=== PATIENT | male | born 1950 | race Caucasian/White ===

== ENCOUNTER 2025-02-15 11:37 | Observation (INO) ==
[2025-02-15 12:32] LABS: Hematocrit (blood only) 22.3 % (42.0-52.0); Hemoglobin 7.1 g/dl (14.0-18.0); Immature Granulocytes # (auto) 0.16 K/uL (0.01-0.20); Immature Granulocytes % (auto) 2.0 %; Mean Corpuscular Hemoglobin 28.7 pg (25.0-34.0); Mean Corpuscular Volume 90.3 fL (80.0-100.0); Platelet Count 229 K/uL (130-400); RDW Standard Deviation 52.0 fL (36.4-46.3); Red Blood Count 2.47 M/uL (4.70-6.10); White Blood Count 8.17 K/ul (4.8-10.8)
[2025-02-15 12:49] LABS: Alanine Aminotransferase 11 U/L (7-52); Albumin Globulin Ratio 1.2 (0.9-2); Alkaline Phosphatase 54 U/L (34-104); Anion Gap 8 (3-11); Bilirubin,Total 0.5 mg/dl (0.2-1.0); Blood Urea Nitrogen 34 mg/dl (6-23); Calcium 10.3 mg/dl (8.6-10.3); Carbon Dioxide 30 mmol/L (21-32); Chloride 98 mmol/L (98-107); Globulin 3.3 gm/dl (2.5-4.0); Glucose 93 mg/dl (70-99(Fasting)); Potassium 5.4 mmol/L (3.5-5.1); Sodium 136 mmol/L (136-145); Total Protein 7.4 gm/dl (6.0-8.3)
[2025-02-15 12:51] LABS: Ovalocytes 1+; Polychromasia 1+
[2025-02-15 12:56] LABS: INR 1.0 (0.9-1.1); Partial Thromboplastin Time 26 Seconds (21-31); Prothrombin Time 10.9 Seconds (9.0-12.0)
--- NOTE | 2025-02-15 13:32 | Emergency Department Note ---
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 The patient notes that for the past several months he has felt dizzy, lightheaded and overall fatigue. Laboratory studies were obtained and patient was noted to have a hemoglobin of 6.9 with hematocrit of 22.6. Patient is on clopidogrel, last of which was taken at 6:30 AM this morning which I did confirm via call/converse with [facility] personnel at 1341 hrs. patient denies any hemoptysis. He denies any recent trauma or injury. He denies any bleeding. He denies any black tarry stools. He denies any blood in the stool recently. Patient believes the blood was drawn at the [facility] this past Thursday/Thu and was referred in today with the result being abnormal noting hemoglobin of 6.9. Per review of the accompanying emergency room transfer form the patient has a history of hypothyroidism, type 2 diabetes, hyperlipidemia, macular degeneration, hypertension, paroxysmal A-fib, GERD, spinal stenosis. Patient does note history of cardiac stent placement currently on clopidogrel among other meds. No other antiplatelet or anticoagulants per review of the accompanying med list or per discussion with [facility] where the patient resides. Home Medications Medication Instructions Recorded Confirmed Type aripiprazole 5 mg tablet 5 mg PO HS 09/02/24 02/15/25 History cholecalciferol (vitamin D3) 25 25 mcg PO DAILY 09/02/24 02/15/25 History mcg (1,000 unit) capsule clopidogrel 75 mg tablet 75 mg PO DAILY 09/02/24 02/15/25 History insulin regular human 100 unit/mL 1 sliding scale dose subcut 09/02/24 02/15/25 History injection solution (Novolin R USEASDIRECTD Regular U-100 Insulin) metformin 1,000 mg tablet 1,000 mg PO BID 09/02/24 02/15/25 History rosuvastatin 40 mg tablet 40 mg PO QPM 09/02/24 02/15/25 History amlodipine 5 mg tablet 5 mg PO DAILY 02/15/25 02/15/25 History benztropine 0.5 mg tablet 0.5 mg PO HS 02/15/25 02/15/25 History duloxetine 60 mg capsule,delayed 60 mg PO BID 02/15/25 02/15/25 History release gemfibrozil 600 mg tablet 600 mg PO BID 02/15/25 02/15/25 History insulin glargine-yfgn 100 unit/mL 36 unit subcut HS 02/15/25 02/15/25 History subcutaneous solution levothyroxine 88 mcg tablet 88 mcg PO DAILY 02/15/25 02/15/25 History sitagliptin phosphate 50 mg tablet 25 mg PO DAILY 02/15/25 02/15/25 History (Cece) Allergies Allergy/AdvReac Type Severity Reaction Status Date / Time No Known Allergies Allergy Unverified 02/15/25 15:43 Past Med/Surg History Problem List CAD (coronary artery disease) Normocytic anemia Diabetic ulcer of toe of right foot (Acute) Diabetic ulcer of toe of left foot (Acute) Diabetic foot ulcer Diabetic foot ulcer associated with secondary diabetes mellitus (Acute) Medical History Combined forms of age-related cataract of both eyes Tinea unguium Major depressive disorder Chronic kidney disease Spinal stenosis Xerosis cutis Gastro-esophageal reflux disease without esophagitis Paroxysmal atrial fibrillation Pulmonary hypertension Atherosclerotic heart disease of [place] coronary artery with other forms of angina pectoris Hypertension Hearing loss, bilateral Macular degeneration Hyperlipidemia Type 2 diabetes mellitus with diabetic neuropathy Hypothyroid Social History Smoking Status: Never smoker Preferred Language: Syriac Visual Impairment: Limited Hearing Ability: Hard of Hearing Diet: regular Assistive Devices: Glasses and Hearing Aid - Bilateral Review of Systems A total of 10 systems reviewed and were otherwise negative Physical Exam Vital Signs Vital Signs - 24 hr 02/15/25 12:00 02/15/25 13:29 02/15/25 13:34 Temperature 36.7 C Temperature Source Temporal Artery Scan Pulse Rate 94 H 88 82 Respiratory Rate 18 20 Blood Pressure 87/54 L 121/68 Blood Pressure Mean 65 84 Pulse Oximetry 100 100 Oxygen Delivery Method Room Air Room Air Sepsis New/Unexplained Change in Mental Status No Sepsis Action Taken by Nursing No Action Required VITAL SIGNS - Vital signs and nursing notes were reviewed. Hypotensive, otherwise stable and afebrile. GENERAL -74-year-old male appearing his stated age who is in no acute distress. Communicates well with provider and answers questions appropriately. SKIN - Without rashes. Patient is pale in appearance, otherwise without any meningeal or petechial rash HEAD - NC/AT. EYES - PERRL with EOMI bilaterally. Sclera anicteric. EARS - No deformities of external structures noted on gross examination bilaterally. NOSE - Midline and without cyanosis. No epistaxis or purulent drainage noted. MOUTH/OROPHARYNX - Without perioral cyanosis. NECK - Neck with FROM. No nuchal rigidity. LUNGS - CTA CARDIAC - RRR ABDOMEN - Abdominal contour normal without pulsations or visible masses. BS normoactive all four quadrants. No tenderness, palpable masses, hepatosplenomegaly, or ascites noted. EXTREMITIES - No clubbing or peripheral cyanosis. +5/5 strength noted in UE/LE bilaterally. NEUROLOGIC - Cranial nerves II through XII grossly intact. PSYCH -alert, oriented and pleasant on exam. Course Administered Medications Discontinued Medications Sodium Chloride (Nss) 500 mls @ 500 mls/hr IV .Q1H ONE Stop: 02/15/25 14:59 Last Infusion: 02/15/25 15:08 Dose: Infused Documented By: Admin: 02/15/25 14:08 Dose: 500 mls/hr Documented By: INGRID Medical Decision Making Laboratory Data 02/15/25 12:10 02/15/25 12:10 Lab Results 02/15/25 02/15/25 02/15/25 Range/Units 12:10 12:11 14:01 WBC 8.17 (4.8-10.8) K/ul RBC 2.47 L (4.70-6.10) M/uL Hgb 7.1 L (14.0-18.0) g/dl Hct 22.3 L (42.0-52.0) % MCV 90.3 (80.0-100.0) fL MCH 28.7 (25.0-34.0) pg MCHC 31.8 L (32.0-36.0) g/dL RDW Std Deviation 52.0 H (36.4-46.3) fL RDW Coeff of Asif 16.1 H (11.5-14.5) % Plt Count 229 (130-400) K/uL MPV 9.9 (9.4-12.4) fL Immature Gran % (Auto) 2.0 % Neut % (Auto) 70.1 % Lymph % (Auto) 19.8 % Garland % (Auto) 6.9 % Eos % (Auto) 0.7 % Baso % (Auto) 0.5 % Reticulocyte % (Auto) (0.50-2.00) % Neut # (Auto) 5.73 (1.40-6.50) K/uL Lymph # (Auto) 1.62 (1.20-3.40) K/uL Garland # (Auto) 0.56 (0.11-0.59) K/uL Eos # (Auto) 0.06 (0.00-0.50) K/uL Baso # (Auto) 0.04 (0.00-0.20) K/uL Reticulocyte # (0.020-0.100) 10^6/uL Immature Gran # (Auto) 0.16 (0.01-0.20) K/uL Polychromasia 1+ Ovalocytes 1+ ESR 45 H (0-20) mm/hr PT 10.9 (9.0-12.0) Seconds INR 1.0 (0.9-1.1) APTT 26 (21-31) Seconds PTT Ratio 1.0 Sodium 136 (136-145) mmol/L Potassium 5.4 H (3.5-5.1) mmol/L Chloride 98 (98-107) mmol/L Carbon Dioxide 30 (21-32) mmol/L Anion Gap 8 (3-11) BUN 34 H (6-23) mg/dl Creatinine 1.42 H (0.6-1.4) mg/dl Est Cr Clr Drug Dosing Not Reportable eGFR 52.18 BUN/Creatinine Ratio 23.9 H (10-20) Glucose 93 (70-99(Fasting)) mg/dl Calcium 10.3 (8.6-10.3) mg/dl Iron (35-175) mcg/dl Transferrin (200-360) mg/dl Ferritin (8-388) ng/ml Total Bilirubin 0.5 (0.2-1.0) mg/dl AST 12 L (13-39) U/L ALT 11 (7-52) U/L Alkaline Phosphatase 54 (34-104) U/L Troponin I High Sens 3.2 (0-20) pg/ml C-Reactive Protein 0.77 H (0-0.5) mg/dl Total Protein 7.4 (6.0-8.3) gm/dl Albumin 4.1 (3.4-5.0) gm/dl Globulin 3.3 (2.5-4.0) gm/dl Albumin/Globulin Ratio 1.2 (0.9-2) Vitamin B12 (180-914) pg/ml Folate (>5.38) ng/ml Procalcitonin 0.08 (0-0.5) ng/ml TSH (0.300-4.500) uIu/ml Blood Type A Negative Blood Type Recheck A Negative Antibody Screen NEGATIVE Crossmatch See Detail 02/15/25 Range/Units 14:46 WBC (4.8-10.8) K/ul RBC (4.70-6.10) M/uL Hgb (14.0-18.0) g/dl Hct (42.0-52.0) % MCV (80.0-100.0) fL MCH (25.0-34.0) pg MCHC (32.0-36.0) g/dL RDW Std Deviation (36.4-46.3) fL RDW Coeff of Asif (11.5-14.5) % Plt Count (130-400) K/uL MPV (9.4-12.4) fL Immature Gran % (Auto) % Neut % (Auto) % Lymph % (Auto) % Garland % (Auto) % Eos % (Auto) % Baso % (Auto) % Reticulocyte % (Auto) 5.95 H (0.50-2.00) % Neut # (Auto) (1.40-6.50) K/uL Lymph # (Auto) (1.20-3.40) K/uL Garland # (Auto) (0.11-0.59) K/uL Eos # (Auto) (0.00-0.50) K/uL Baso # (Auto) (0.00-0.20) K/uL Reticulocyte # 0.140 H (0.020-0.100) 10^6/uL Immature Gran # (Auto) (0.01-0.20) K/uL Polychromasia Ovalocytes ESR (0-20) mm/hr PT (9.0-12.0) Seconds INR (0.9-1.1) APTT (21-31) Seconds PTT Ratio Sodium (136-145) mmol/L Potassium (3.5-5.1) mmol/L Chloride (98-107) mmol/L Carbon Dioxide (21-32) mmol/L Anion Gap (3-11) BUN (6-23) mg/dl Creatinine (0.6-1.4) mg/dl Est Cr Clr Drug Dosing eGFR BUN/Creatinine Ratio (10-20) Glucose (70-99(Fasting)) mg/dl Calcium (8.6-10.3) mg/dl Iron 46 (35-175) mcg/dl Transferrin 251 (200-360) mg/dl Ferritin 39.2 (8-388) ng/ml Total Bilirubin (0.2-1.0) mg/dl AST (13-39) U/L ALT (7-52) U/L Alkaline Phosphatase (34-104) U/L Troponin I High Sens (0-20) pg/ml C-Reactive Protein (0-0.5) mg/dl Total Protein (6.0-8.3) gm/dl Albumin (3.4-5.0) gm/dl Globulin (2.5-4.0) gm/dl Albumin/Globulin Ratio (0.9-2) Vitamin B12 383 (180-914) pg/ml Folate 15.67 (>5.38) ng/ml Procalcitonin (0-0.5) ng/ml TSH 1.652 (0.300-4.500) uIu/ml Blood Type Blood Type Recheck Antibody Screen Crossmatch Imaging Data Radiologist's Impression: Chest X-Ray 02/15/25 12:05 XR chest 1V portable CLINICAL HISTORY: anemia COMPARISON STUDY: 05/30/2024 FINDINGS: Heart size and pulmonary vasculature are normal. No consolidation or pleural effusion. No pneumothorax. IMPRESSION: No acute findings. ACT 112: Negative or not required by law. Electronically signed by: Homar Ascencio M.D. 02/15/2025 2:09 PM MDM Narrative Patient was seen and evaluated as above in room B10. Review was performed of nursing notes and vital signs. I did review pertinent previous visits and patient history. After obtaining a thorough history and physical examination the above work up was performed. Patient presents to us today referred by the [facility], patient currently incarcerated at [facility]. Patient noted to have hemoglobin of 6.9 prompting referral here today. Patient is pale in appearance. He is noted to be hypotensive on initial BP check at 87/54 but recheck reveals normotensive status BP 121/68. Appropriate blood consent form was completed. Patient did provide consent to proceed with blood transfusion. Type and cross ordered, transfuse 1 unit now, 1 on hold. No leukocytosis. Hemoglobin 7.1. Inflammatory markers elevated. Hyperkalemia 5.4. BOLA creatinine 1.42 with a BUN of 34. Troponin negative. Procalcitonin within normal range. EKG per monitor potation reveals normal sinus rhythm at a rate of 91 bpm. QTc 418. QRS 64. No ST elevation on this rhythm tracing. No hyperkalemia findings on this rhythm tracing. Plan at this time is further evaluation and management in the inpatient setting. Case discussed with the hospitalist service. Please refer to further documentation regarding his stay. GCS: 15 In the evaluation and treatment of this patient the following differential diagnoses were entertained: Acute GI bleed, anemia, anemia of chronic disease, among others. Impression & Plan Anemia Discharge Plan Visit Data Chief Complaint: Abnormal Labs/Diagnostic Testing Stated Complaint: LOW H&H ED Provider: Juan Carlos Samano ED Midlevel Provider: Kings Erickson Discharge Problem: Anemia Patient Disposition: Admitted As Inpatient Condition: Good Discharge Instructions Interventions: ED Discharge Assessment Last Done: 02/15/25 16:31
[2025-02-15] MEDS ORDERED: SODIUM CHLORIDE 0.9% 100 ML IV PRN (13:58)
[2025-02-15] MEDS: SODIUM CHLORIDE 0.9% 500 ML IV ONE (14:08)
--- NOTE | 2025-02-15 14:11 | XRay Report ---
XR chest 1V portable CLINICAL HISTORY: anemia COMPARISON STUDY: 05/30/2024 FINDINGS: Heart size and pulmonary vasculature are normal. No consolidation or pleural effusion. No p neumothorax. IMPRESSION: No acute findings. ACT 112: Negative or not required by law. Electronically signed by: Homar Ascencio M.D. 02/15/2025 2:09 PM
--- NOTE | 2025-02-15 14:58 | History & Physical Report ---
Date of Service February 15, 2025 Assessment & Plan (1) Normocytic anemia: (2) Type 2 diabetes mellitus with diabetic neuropathy: (3) Chronic kidney disease: (4) Paroxysmal atrial fibrillation: (5) Pulmonary hypertension: (6) Hypothyroid: (7) CAD (coronary artery disease): Plan 74 y/o with DM 2 and CAD with history of stent on plavix who was sent to our ED by [facility] for anemia found on labs. Hg 6.9 on Thursday and stable today at 7.1. No melena or BRBPR # Normocytic anemia -transfused 1u RBC in ED -check CBC in AM -add on anemia labs to ED sample: retic, ferritin, iron, transferrin sat, B12, folate, TSH, A1c. B12 folate TSH came back normal. -guaiac stools -UA -hold gemfibrozil can cause cytopenias -unless evidence of active bleeding, outpatient GI referral for endoscopies is appropriate if its iron deficiency anemia, may need hematology referral for other types of anemia # CKD-3 # HTN Cr mildly increased from 6 months ago 1.2--1.4 and mildly hyperkalemic 5.4 -transfusion will help -held MICAELA -AM BMP # DM type 2 - metformin held -continue glargine and premeal/correctional aspart -DM diet # CAD hx stent remote stent (>10 years) -stable, continue plavix unless bleeding seen # mental health -continue aripiprazole Dispo - anticipate back to [facility] tomorrow AM History of Present Illness Chief Complaint: anemia, abnormal labs Primary Care Provider: [facility] 74 y/o with DM 2 and CAD on plavix who was sent to our ED by [facility] for anemia found on labs. We think labs were drawn thursday and unknown whether routine or for specific indication. Hg was 6.9 There has not been any BRBPR or melena. On plavix for coronary stent which was years ago. No abdominal pain. No hematuria. Hg unchanged since Thursday so there is stability. He had a sharp left precordial chest pain last week that lasted a few seconds. Otherwise no chest pain. No dyspnea. No lightheadedness. He does have fatigue but not changed recently. Allergies Allergy/AdvReac Type Severity Reaction Status Date / Time No Known Allergies Allergy Unverified 02/15/25 15:43 Home Medications Medication Instructions Recorded Confirmed Type aripiprazole 5 mg tablet 5 mg PO HS 09/02/24 02/15/25 History cholecalciferol (vitamin D3) 25 25 mcg PO DAILY 09/02/24 02/15/25 History mcg (1,000 unit) capsule clopidogrel 75 mg tablet 75 mg PO DAILY 09/02/24 02/15/25 History insulin regular human 100 unit/mL 1 sliding scale dose subcut 09/02/24 02/15/25 History injection solution (Novolin R USEASDIRECTD Regular U-100 Insulin) metformin 1,000 mg tablet 1,000 mg PO BID 09/02/24 02/15/25 History rosuvastatin 40 mg tablet 40 mg PO QPM 09/02/24 02/15/25 History amlodipine 5 mg tablet 5 mg PO DAILY 02/15/25 02/15/25 History benztropine 0.5 mg tablet 0.5 mg PO HS 02/15/25 02/15/25 History duloxetine 60 mg capsule,delayed 60 mg PO BID 02/15/25 02/15/25 History release gemfibrozil 600 mg tablet 600 mg PO BID 02/15/25 02/15/25 History insulin glargine-yfgn 100 unit/mL 36 unit subcut HS 02/15/25 02/15/25 History subcutaneous solution levothyroxine 88 mcg tablet 88 mcg PO DAILY 02/15/25 02/15/25 History sitagliptin phosphate 50 mg tablet 25 mg PO DAILY 02/15/25 02/15/25 History (Cece) Past Med/Surg History Problem List CAD (coronary artery disease) Normocytic anemia Diabetic ulcer of toe of right foot (Acute) Diabetic ulcer of toe of left foot (Acute) Diabetic foot ulcer Diabetic foot ulcer associated with secondary diabetes mellitus (Acute) Medical History Combined forms of age-related cataract of both eyes Tinea unguium Major depressive disorder Chronic kidney disease Spinal stenosis Xerosis cutis Gastro-esophageal reflux disease without esophagitis Paroxysmal atrial fibrillation Pulmonary hypertension Atherosclerotic heart disease of [place] coronary artery with other forms of angina pectoris Hypertension Hearing loss, bilateral Macular degeneration Hyperlipidemia Type 2 diabetes mellitus with diabetic neuropathy Hypothyroid Social History Smoking Status: Never smoker Preferred Language: Macedonian Visual Impairment: Limited Hearing Ability: Hard of Hearing Diet: regular Assistive Devices: Glasses and Hearing Aid - Bilateral Review of Systems 2 Review of Systems: All systems reviewed & are unremarkable except as noted in HPI & below Physical Exam 2 Physical Exam: Last 24h vitals reviewed GEN: no acute distress, sitting in bed, getting transfusion HEENT: pupils equal, sclerae anicteric, moist MM RESP: normal WOB, CTAB CV: reg no mrg ABD: soft/nt/nd +BT : no salomon SKIN: warm and dry, no generalized rashes NEURO: AOx person, place, and situation. Very [place]. Face symmetric, speech normal, moves 4 ext spontaneously and equally Results & Data Results & Data Vital Signs (Past 12 Hours) Vital Signs Temp Pulse Resp BP Pulse Ox O2 Del Method 02/15/25 13:34 82 02/15/25 13:29 88 20 121/68 100 Room Air 02/15/25 12:00 36.7 C 94 H 18 87/54 L 100 Room Air Laboratory Results 02/15/25 12:10 02/15/25 12:10 Baseline Cr per records review 1.2 ESR 45 and CRP0.77 Coags normal LFT normal Albumin nl Procal neg Personally reviewed CXR film and it is clear Personally reviewed EKG tracing and it is normal Code Status & VTE Plan VTE Prophylaxis Plan VTE Prophylaxis will be ordered: Yes PG Care Time/CCT Total # of Minutes Spent Total Time Spent with Patient: Total time spent is greater than 50% in coordination of care (as documented) at patient's floor/unit and/or counseling patient: Coding Level of Care Code 01904 INT INP/OBS CARE 2/55MIN Diagnoses Normocytic anemia D64.9 Type 2 diabetes mellitus with diabetic neuropathy E11.40 Chronic kidney disease N18.9 Paroxysmal atrial fibrillation I48.0 Pulmonary hypertension I27.20 Hypothyroid E03.9 CAD (coronary artery disease) I25.10
[2025-02-15 15:14] LABS: Reticulocytes # 0.140 10^6/uL (0.020-0.100)
[2025-02-15 15:31] LABS: Iron 46.0 mcg/dl (35-175); Transferrin 251.0 mg/dl (200-360)
[2025-02-15 15:48] LABS: Thyroid Stimulating Hormone 1.652 uIu/ml (0.300-4.500)
[2025-02-15 15:51] LABS: Ferritin 39.2 ng/ml (8-388)
[2025-02-15 15:57] LABS: Folate (Folic Acid),Ser orPlas 15.67 ng/ml (>5.38)
[2025-02-15 15:59] LABS: Vitamin B12 383.0 pg/ml (180-914)
[2025-02-15] MEDS ORDERED: GLUCOSE 40% GEL 15 GM TUBE PO PRN (16:31)
[2025-02-15] MEDS ORDERED: CARBOHYDRATES FOR HYPOGLYCEMIA PO PRN (16:31)
[2025-02-15] MEDS ORDERED: GLUCOSE 10 TAB/TUBE PO PRN (16:31)
[2025-02-15] MEDS ORDERED: ACETAMINOPHEN 325 MG TAB PO PRN (16:31)
[2025-02-15] MEDS ORDERED: POLYETHYLENE (MIRALAX) 17 GM PACK PO PRN (16:31)
[2025-02-15] MEDS ORDERED: ALUMINUM/MAGNESIUM SUSP 30 ML UDC PO PRN (16:31)
[2025-02-15] MEDS ORDERED: MAGNESIUM HYDROXIDE SUSP 30 ML UDC PO PRN (16:31)
[2025-02-15] MEDS ORDERED: DEXTROSE 50% 50 ML SYRINGE IV PRN (16:31)
[2025-02-15] MEDS ORDERED: GLUCAGON FOR INJ 1 MG VIAL SQ PRN (16:31)
[2025-02-15] MEDS ORDERED: ONDANSETRON INJ 2 MG/ML 2 ML VIAL IV PRN (16:31)
[2025-02-15] MEDS ORDERED: MELATONIN 3 MG TAB PO PRN (16:31)
[2025-02-15 17:54] LABS: Appearance Urine Clear (Clear); Glucose Urine UA Negative (Negative)
[2025-02-15] MEDS: INSULIN ASPART PER UNIT CHARGE SC SCH (18:47)
[2025-02-16 00:28] VITALS: TEMP 98.1
[2025-02-16 05:03] LABS: Hematocrit (blood only) 26.4 % (42.0-52.0); Hemoglobin 8.5 g/dl (14.0-18.0); Mean Corpuscular Hemoglobin 28.2 pg (25.0-34.0); Mean Corpuscular Volume 87.7 fL (80.0-100.0); Platelet Count 178 K/uL (130-400); RDW Standard Deviation 49.1 fL (36.4-46.3); Red Blood Count 3.01 M/uL (4.70-6.10); White Blood Count 5.57 K/ul (4.8-10.8)
[2025-02-16 05:32] LABS: Anion Gap 9.0 (3-11); Blood Urea Nitrogen 31.0 mg/dl (6-23); Calcium 9.6 mg/dl (8.6-10.3); Carbon Dioxide 28.0 mmol/L (21-32); Chloride 99.0 mmol/L (98-107); Creatinine Clr Calc Pharmacy 57.6 ml/min; Glucose 122.0 mg/dl (70-99(Fasting)); Potassium 3.8 mmol/L (3.5-5.1); Sodium 136.0 mmol/L (136-145)
[2025-02-16] MEDS: LEVOTHYROXINE SODIUM 100 MCG TABLET PO SCH (06:25)
[2025-02-16 06:32] VITALS: RESP 18; O2SAT 98
[2025-02-16 07:30] LABS: Hemoglobin A1C 4.6 % (4.5-5.6)
[2025-02-16] MEDS: FUROSEMIDE 20 MG TAB PO SCH (08:13)
[2025-02-16] MEDS: ROSUVASTATIN CALCIUM 20 MG TAB PO SCH (08:13)
[2025-02-16] MEDS: CLOPIDOGREL BISULFATE 75 MG TAB PO SCH (08:13)
[2025-02-16] MEDS: ARIPiprazole 5 MG TAB PO SCH (08:13)
[2025-02-16] MEDS: LANTUS PER UNIT CHARGE SQ SCH (08:23)
--- NOTE | 2025-02-16 11:41 | Discharge Summary ---
Discharge Summary Date of Service February 16, 2025 Principal Dx & Hospital Course #1 = Principal Diagnosis (1) Normocytic anemia: No overt melena or hematochezia seen. Fecal occult blood is pending. He received 1 unit packed red blood cells for hemoglobin 7.1 on admission and hemoglobin is now 8.5. Plavix has been permanently discontinued and switched to aspirin 81 mg daily. All other medication remains the same (2) Type 2 diabetes mellitus with diabetic neuropathy: ADA diet. Resume previous diabetic management (3) Chronic kidney disease: Creatinine 1.4 on admission consistent with acute kidney injury. Improved to 1.1 with IV fluids. (4) Paroxysmal atrial fibrillation: Normal sinus rhythm while hospitalized. Continue current medical management (5) Pulmonary hypertension: Stable. No intervention necessary at this time (6) Hypothyroid: Stable. Continue current medical (7) CAD (coronary artery disease): Stable. Continue current medical management Plan Aspirin 81 mg once daily replaces Plavix. All other medications remain the same. He will return to [facility] today, February 16 Admission HPI Per Admitting Provider 74 y/o with DM 2 and CAD on plavix who was sent to our ED by [facility] for anemia found on labs. We think labs were drawn thursday and unknown whether routine or for specific indication. Hg was 6.9 There has not been any BRBPR or melena. On plavix for coronary stent which was years ago. No abdominal pain. No hematuria. Hg unchanged since Thursday so there is stability. He had a sharp left precordial chest pain last week that lasted a few seconds. Otherwise no chest pain. No dyspnea. No lightheadedness. He does have fatigue but not changed recently. Discharge Plan Discharge Items [facility] Disposition[facility] Reason For Visit: ANEMIA Discharge Diagnosis: Acute on chronic anemia, hyperkalemia, acute kidney injury Condition on Discharge: Good Activity: Resume your previous activity Non-emergency contact: Primary Care Provider Call non-emergency contact if: your symptoms worsen Follow-up/Referrals: Bright CLARK [Primary Care Provider] - Diet: Carb Consistent or DM2 and Heart Healthy Addtl Attending Provider Instructions: Plavix has been stopped permanently. Take aspirin 81 mg once daily. All other medications stay the same Pending Studies at Discharge: Yes Studies:: Fecal occult blood test Stand-Alone Forms: My [facility] Skilled Items Patient informed of condition?: Yes Discharge Level of Care: Other Communicable Disease: No Discharge Prognosis: Stable Lines: None Urinary Catheter: No Medications and DC Order Prescriptions: New aspirin 81 mg tablet,delayed release (DR/EC) 81 mg PO DAILY Qty: 1 0RF Continued rosuvastatin 40 mg tablet 40 mg PO QPM cholecalciferol (vitamin D3) 25 mcg (1,000 unit) capsule 25 mcg PO DAILY metformin 1,000 mg tablet 1,000 mg PO BID aripiprazole 5 mg tablet 5 mg PO HS Novolin R Regular U100 Insulin 100 unit/mL solution 1 sliding scale dose subcut USEASDIRECTD gemfibrozil 600 mg Tablet 600 mg PO BID amlodipine 5 mg Tablet 5 mg PO DAILY levothyroxine 88 mcg Tablet 88 mcg PO DAILY insulin glargine-yfgn 100 unit/mL Solution 36 unit SUBCUT HS duloxetine 60 mg Capsule,Delayed Release(Dr/Ec) 60 mg PO BID Januvia 50 mg Tablet 25 mg PO DAILY benztropine 0.5 mg Tablet 0.5 mg PO HS Discontinued clopidogrel 75 mg tablet 75 mg PO DAILY Discharge Orders: Discharge Order (Routine); Ordered 02/16/25 Ordered By: Dante Velez Admission Data Admit Date/Time: 02/15/25 14:59 Attending Provider: Dante Velez Admit Provider: Katelynn Barron Primary Care Provider: Bright CLARK Other Providers: Katelynn Barron Hospital Stay Data Consultations 02/15/25 14:04 ED Decision to Admit Stat Pending Results Patient Have Any Pending Studies at Discharge: Yes Discharge Instructions Given to Patient (Per Discharging Provider) Plavix has been stopped permanently. Take aspirin 81 mg once daily. All other medications stay the same Total Time Total Time Spent Total Time Spent (In Minutes): 45 minutes Coding Level of Care Code 92689 INP/OBS DISCH >30 MIN Diagnoses Normocytic anemia D64.9 Type 2 diabetes mellitus with diabetic neuropathy E11.40 Chronic kidney disease N18.9 Paroxysmal atrial fibrillation I48.0 Pulmonary hypertension I27.20 Hypothyroid E03.9 CAD (coronary artery disease) I25.10
[2025-02-16 12:25] VITALS: BP 125/75; PULSE 75
--- NOTE | 2025-02-18 06:13 | Electrocardiogram Report ---
Test Reason : Blood Pressure : */* mmHG Vent. Rate : 91 BPM Atrial Rate : 91 BPM P-R Int : 160 ms QRS Dur : 64 ms QT Int : 340 ms P-R-T Axes : 38 40 44 degrees QTcB Int : 418 ms Normal sinus rhythm Normal ECG When compared with ECG of 30-May-2024 13:22, No significant change was found Confirmed by Antwon Calderon ([id number]) on 02/18/2025 6:13:18 AM Referred By: [facility] Confirmed By: Antwon Calderon
== END 2025-02-16 12:23 | disposition home or self-care (01) | DRG 812 ==
LOC: ED 11:37 → INTOOBSV 14:59 → SUATTDRO 14:59 → EDINP 14:59